=== PATIENT | female | born 1945 | race Caucasian/White ===

== ENCOUNTER 2020-06-19 22:36 | Emergency (ER) | payer MEDICARE, OTHER ==
[~2020-06-19] VITALS: Ht 167.6 cm; Wt 92.1 kg
[2020-06-19] MEDS ORDERED: AMLODIPINE BESY10 MG PO (22:57)
[2020-06-19] MEDS ORDERED: OXYCODONE HCL15 MG PO (22:58)
[2020-06-19] MEDS ORDERED: FAMOTIDINE20 MG PO (22:58)
[2020-06-19] MEDS ORDERED: LISINOPRIL20 MG PO (22:59)
[2020-06-19] MEDS ORDERED: ROSUVASTATIN CAL5 MG PO (22:59)
[2020-06-19] MEDS ORDERED: PANTOPRAZOLE SO40 MG PO (23:00)
== END 2020-06-20 04:54 | disposition home or self-care (01) ==
LOC: ED 22:36
DX: S39.012A Strain of muscle, fascia and tendon of lower back, initial encounter (principal); S76.011A Strain of muscle, fascia and tendon of right hip, initial encounter; W18.30XA Fall on same level, unspecified, initial encounter; I10 Essential (primary) hypertension; F17.200 Nicotine dependence, unspecified, uncomplicated; Z88.0 Allergy status to penicillin; Z88.8 Allergy status to other drugs, medicaments and biological substances; Z79.899 Other long term (current) drug therapy
CPT/HCPCS: 72100; 73502; 96374; 99283-25; J1885

== ENCOUNTER 2020-07-20 09:47 | Emergency (ER) | payer MEDICARE, OTHER ==
[~2020-07-20] VITALS: Ht 167.6 cm; Wt 92.1 kg
[~2020-07-20 09:47] MED LIST: AMLODIPINE BESY10 MG PO; FAMOTIDINE20 MG PO; LISINOPRIL20 MG PO; OXYCODONE HCL15 MG PO; PANTOPRAZOLE SO40 MG PO; ROSUVASTATIN CAL5 MG PO
[2020-07-20] MEDS ORDERED: ZANAFLEX4 MG PO (10:02)
== END 2020-07-20 13:30 | disposition home or self-care (01) ==
LOC: ED 09:47
DX: S96.911A Strain of unspecified muscle and tendon at ankle and foot level, right foot, initial encounter (principal); M79.604 Pain in right leg; I10 Essential (primary) hypertension; F17.200 Nicotine dependence, unspecified, uncomplicated; Z88.0 Allergy status to penicillin; Z88.8 Allergy status to other drugs, medicaments and biological substances; Z79.899 Other long term (current) drug therapy; W10.9XXA Fall (on) (from) unspecified stairs and steps, initial encounter
CPT/HCPCS: 73552; 73560; 73590; 73610; 73630; 96374; 96375; 99283-25; J1885; J2270; J2405

== ENCOUNTER 2021-11-19 11:05 | Emergency (ER) | payer MEDICARE, OTHER ==
[~2021-11-19] VITALS: Ht 167.6 cm; Wt 85.4 kg
[~2021-11-19 11:05] MED LIST changes: +ZANAFLEX4 MG PO
--- OUTSIDE RECORDS SUMMARY | 2021-11-19 11:08 | XMS ---
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 Wilmer VISIT COUNT (12 MO.) Alex Clancy TOTAL 1 NOTE: Visits indicate total known visits. ED/UCC VISIT TRACKING (12 MO.) 11/19/2021 11:05 CHEMA [facility]aji [place] TYPE: Emergency COMPLAINT: - L RIBCAGE INJURY INPATIENT VISIT TRACKING (12 MO.) No inpatient visits to display in this time frame [id number]
[2021-11-19] MEDS ORDERED: LIDOCAINE1 EAC1 TD (11:56)
== END 2021-11-19 12:54 | disposition home or self-care (01) ==
LOC: ED 11:05
DX: S20.212A Contusion of left front wall of thorax, initial encounter (principal); W17.89XA Other fall from one level to another, initial encounter; I10 Essential (primary) hypertension; F17.200 Nicotine dependence, unspecified, uncomplicated; Z88.0 Allergy status to penicillin; Z88.8 Allergy status to other drugs, medicaments and biological substances; Z79.899 Other long term (current) drug therapy
CPT/HCPCS: 71046; 99283-25; A9270

== ENCOUNTER 2021-12-01 12:36 | Emergency (ER) | payer MEDICARE, OTHER ==
[~2021-12-01] VITALS: Ht 167.6 cm; Wt 85.4 kg
[~2021-12-01 12:36] MED LIST changes: +LIDOCAINE1 EAC1 TD
--- OUTSIDE RECORDS SUMMARY | 2021-12-01 12:39 | XMS ---
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 Wilmer VISIT COUNT (12 MO.) 2 [facility] TOTAL 2 NOTE: Visits indicate total known visits. ED/UCC VISIT TRACKING (12 MO.) 12/01/2021 12:37 CHEMA Haji [place] TYPE: Emergency COMPLAINT: - GENERAL PAIN 11/19/2021 11:05 CHEMA Haji [place] TYPE: Emergency COMPLAINT: - L RIBCAGE INJURY INPATIENT VISIT TRACKING (12 MO.) No inpatient visits to display in this time frame [id number]
[2021-12-01] MEDS ORDERED: ASPIRIN81 MG PO (12:55)
[2021-12-01] MEDS ORDERED: OXYCODONE HCL15 MG PO (14:15)
== END 2021-12-01 14:28 | disposition home or self-care (01) ==
LOC: ED 12:36
DX: G89.29 Other chronic pain (principal); Z76.0 Encounter for issue of repeat prescription; I10 Essential (primary) hypertension; F17.200 Nicotine dependence, unspecified, uncomplicated; Z88.0 Allergy status to penicillin; Z88.8 Allergy status to other drugs, medicaments and biological substances
CPT/HCPCS: 99281

== ENCOUNTER 2022-07-15 13:44 | Emergency (ER) | payer MEDICARE, OTHER ==
[~2022-07-15] VITALS: Ht 167.6 cm; Wt 84.8 kg
[~2022-07-15 13:44] MED LIST changes: +ASPIRIN81 MG PO
--- OUTSIDE RECORDS SUMMARY | 2022-07-15 13:46 | XMS ---
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 Wilmer VISIT COUNT (12 MO.) Angel Clancy TOTAL 3 NOTE: Visits indicate total known visits. ED/UCC VISIT TRACKING (12 MO.) 07/15/2022 13:45 CHEMA [facility]aji [place] TYPE: Emergency COMPLAINT: - R KNEE POST OP PAIN 12/01/2021 12:37 CHEMA Haji [place] TYPE: Emergency COMPLAINT: - GENERAL PAIN DIAGNOSES: - Allergy status to other drugs, medicaments and biological substances - Allergy status to penicillin - Encounter for issue of repeat prescription - Essential (primary) hypertension - Nicotine dependence, unspecified, uncomplicated - Other chronic pain 11/19/2021 11:05 CHEMA [facility]aji [place] TYPE: Emergency COMPLAINT: - L RIBCAGE INJURY DIAGNOSES: - Allergy status to other drugs, medicaments and biological substances - Allergy status to penicillin - Contusion of left front wall of thorax, initial encounter - Essential (primary) hypertension - Nicotine dependence, unspecified, uncomplicated - Other chest pain - Other fall from one level to another, initial encounter - Other long term care pharmacist (current) drug therapy INPATIENT VISIT TRACKING (12 MO.) No inpatient visits to display in this time frame [id number]
[2022-07-15] MEDS ORDERED: FAMOTIDINE20 MG PO (14:59)
[2022-07-15] MEDS ORDERED: HYDRALAZINE HCL25 MG PO (14:59)
[2022-07-15 15:09] VITALS: BP 147/71
== END 2022-07-15 15:09 | disposition home or self-care (01) ==
LOC: ED 13:44
DX: M62.81 Muscle weakness (generalized) (principal); I10 Essential (primary) hypertension; F17.200 Nicotine dependence, unspecified, uncomplicated; Z96.651 Presence of right artificial knee joint; Z88.0 Allergy status to penicillin; Z88.8 Allergy status to other drugs, medicaments and biological substances; Z79.899 Other long term (current) drug therapy; Z79.82 Long term (current) use of aspirin
CPT/HCPCS: 99284

== ENCOUNTER 2023-01-19 16:50 | Inpatient (IN) | payer MEDICARE, OTHER ==
[2023-01-19] VITALS (8 sets, daily range): BP systolic 85–131; BP diastolic 57–82
[~2023-01-19] VITALS: Ht 167.6 cm; Wt 82.9 kg
[~2023-01-19 16:50] MED LIST changes: +HYDRALAZINE HCL25 MG PO
--- OUTSIDE RECORDS SUMMARY | 2023-01-19 16:52 | XMS ---
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 Wilmer VISIT COUNT (12 MO.) Sherin Clancy TOTAL 2 NOTE: Visits indicate total known visits. ED/UCC VISIT TRACKING (12 MO.) 01/19/2023 16:51 CHEMA Haji [place] TYPE: Emergency COMPLAINT: - COLD SYMPTOMS 07/15/2022 13:45 CHEMA Haji [place] TYPE: Emergency COMPLAINT: - R KNEE POST OP PAIN DIAGNOSES: - Allergy status to other drugs, medicaments and biological substances - Allergy status to penicillin - Essential (primary) hypertension - USP (current) use of aspirin - Muscle weakness (generalized) - Nicotine dependence, unspecified, uncomplicated - Other senior living (current) drug therapy - Presence of right artificial knee joint - Weakness INPATIENT VISIT TRACKING (12 MO.) No inpatient visits to display in this time frame [id number]
[2023-01-19 17:41] LABS: INFLUENZA B NAA NEGATIVE (NEGATIVE); RESPIRATORY SYNCYTIAL VIR NAA NEGATIVE (NEGATIVE)
[2023-01-19 17:50] LABS: BASOPHILS 2.5 % (0-2); EOSINOPHILS 1.9 % (0-6); HEMATOCRIT 44.8 % (35.0-50.0); HEMOGLOBIN 14.7 g/dL (12.0-18.0); LYMPHOCYTES 13.3 % (24-44); MCH 28.9 (27-36); MCHC 32.9 g/dl (30-36); MCV 87.9 fl (81-99); MONOCYTES 10.6 % (0-12); NEUTROPHILS 71.7 % (39-80); PLATELET COUNT 238 K/uL (140-440); RBC 5.09 M/ul (4.3-5.7); RDW 12.9 (10.5-15.0)
[2023-01-19 18:06] LABS: ALBUMIN 3.6 g/dL (3.4-5.0); ALBUMIN/GLOBULIN RATIO 1.09 (1.1-2.4); ANION GAP 13.1 (7-21); BILIRUBIN, TOTAL 0.5 ng/dL (0.2-1.0); BUN/CREATININE RATIO 18.27 (6.0-28.6); CALCIUM 8.2 mg/dL (8.5-10.1); CREATININE, SERUM 0.93 mg/dL (0.55-1.02); POTASSIUM 4.1 mmol/L (3.5-5.1); PROTEIN, TOTAL 6.9 g/dL (6.4-8.2)
--- NOTE | 2023-01-19 19:50 | NUR ---
PT ARRIVES TO UNIT BY STRETCHER FROM ER. PT IS ALERT AND ORIENTATED. PT IS COUGHING AND HAS DIMISHED LUNG SOUNDS BUT REMAINS ON ROOM AIR. PT IS IN A-FIB AND ARRIVES WITH CARDIZEM DRIP STOPPED DUE TO HYPOTENSION. 500ML BOLUS IS RUNNING. HR REMAINS IN 100-110. PT DENIES ANY NAUSEA AT THIS TIME. WHEN BP IMPROVED PT DID GET UP AND WALKED TO THE BATHROOM TO URINATE. AMBULATED WITH STAND BY ASSIST. PT BACK TO BED, BED LOWERED AND LOCKED. CALL LIGHT WITH IN REACH. PT ORIENTATED TO SURROUNDINGS, RN EDUCATED PT ABOUT CALLING FOR HELP AND TO NOT GET OUT OF BED WITHOUT A STAFF MEMBER. PT DENIES PAIN AT THIS TIME. ALL QUESTIONS AND CONCERNS ADDRESSED.
--- NOTE | 2023-01-19 22:00 | NUR ---
PT IS RESTING IN BED. PT COMPLAINS OF PAIN WHEN COUGHING, PRN MEDICATION GIVEN. VS REVIEWED. CALL LIGHT WITH IN REACH. ALL QUESTIONS AND CONCERNS ADDRESSED. BED LOWERED AND LOCKED.
--- NOTE | 2023-01-19 22:57 | EKG ---
[facility] [address] [facility] [place] [address] Signed Atrial fibrillation with rapid ventricular response with premature ventricular or aberrantly conducted complexes Abnormal ECG No previous ECGs available Confirmed by Jaylan Gomez MD () on 01/19/2023 10:57:28 PM Electronically Signed By: JAYLAN GOMEZ MD 01/19/23 2257 PATIENT NAME: ENRIQUE STONE KEENAN Electrocardiogram DATE OF : 45 PHYSICIAN: JAYLAN GOMEZ MD REPORT #: [id number] REPORT IS CONFIDENTIAL AND NOT TO BE RELEASED WITHOUT AUTHORIZATION
[2023-01-20] VITALS (18 sets, daily range): BP systolic 105–144; BP diastolic 56–97
--- NOTE | 2023-01-20 | NUR ---
PT IS RESTING IN BED. VS ARE REVIEWED. ALL QUESTIONS AND CONCERNS ADDRESSED AT THIS TIME. PT OFFERED FLUIDS. BED IS LOWERED AND LOCKED, PIV FLUSHED. CALL LIGHT IS WITH IN REACH.
--- NOTE | 2023-01-20 01:32 | NUR ---
PT COMPLAINS THAT HER UPPER CHEST PAIN IS NO LONGER TIGHTNESS WHEN TAKING BREATHS BUT IS NOW HEARTBURN SPREADING UP THE CHEST AND INCREASING GETTING WORSE. RN STEPPED OUT TO CALL , EKG AND TROPONIN ORDERED. WHEN RN WENT BACK TO THE ROOM PT STARTED VOMITING, PRN ZOFRAN GIVEN. EKG OBTAINED, NO SIGNIFCANT CHANGES TO EKG, NO SIGNS OF ST ELEVATION. CARDIZEM DRIP INCREASED, HEART RATE INCREASED.
--- NOTE | 2023-01-20 04:00 | NUR ---
PT IS RESTING IN BED. PT DOES NOT COMPLAIN OF ANY NEW OR INCREASED PAIN AT THIS TIME. VITAL SIGNS REVIEWED AND STABLE. CARDIZEM DRIP OFF, PT REMAINS IN A-FIB AND RATE CONTROLLED. ALL QUESTIONS AND CONCERNS ADDRESSED. CALL LIGHT WITH IN REACH. BED IS LOCKED AND IN A LOWERED POSITION.
[2023-01-20 05:44] LABS: BASOPHILS 0.8 % (0-2); EOSINOPHILS 1.8 % (0-6); HEMATOCRIT 40.7 % (35.0-50.0); HEMOGLOBIN 13.8 g/dL (12.0-18.0); LYMPHOCYTES 23.7 % (24-44); MCH 29.4 (27-36); MCHC 33.9 g/dl (30-36); MCV 86.7 fl (81-99); MONOCYTES 10.2 % (0-12); NEUTROPHILS 63.5 % (39-80); PLATELET COUNT 230 K/uL (140-440); RBC 4.69 M/ul (4.3-5.7); RDW 12.7 (10.5-15.0)
[2023-01-20 05:53] LABS: INR 1.16 (0.80-1.30); PROTIME 14.3 Sec (11.2-14.2)
[2023-01-20 06:05] LABS: ALBUMIN 3.2 g/dL (3.4-5.0); ALBUMIN/GLOBULIN RATIO 1.03 (1.1-2.4); ANION GAP 8.9 (7-21); BILIRUBIN, TOTAL 0.4 ng/dL (0.2-1.0); BUN/CREATININE RATIO 17.34 (6.0-28.6); CREATININE, SERUM 0.98 mg/dL (0.55-1.02); MAGNESIUM 1.5 mg/dL (1.8-2.4); PHOSPHORUS, INORGANIC 1.8 mg/dL (2.5-4.9); POTASSIUM 3.9 mmol/L (3.5-5.1); PROTEIN, TOTAL 6.3 g/dL (6.4-8.2)
--- NOTE | 2023-01-20 07:08 | NUR ---
PT RESTING IN BED, NO COMPLAINTS OF PAIN AT THE MOMENT. PT DID FALL ASLEEP AND DESATURATED ONCE INTO 70'S, PT WAS WOKEN AND SATURATIONS IMPROVED. VITAL SIGNS REVIEWED. ALL QUESTIONS AND CONCERNS ADDRESSED. CALL LIGHT WITH IN REACH. BED IN LOW POSITION AND LOCKED.
--- NOTE | 2023-01-20 07:30 | NUR ---
REPORT RECEIVED FROM KIMANI LIZARRAGA. PT ON MONITOR WITH SPO2 97% AND HR 90'S.
[2023-01-20] MEDS ORDERED: NALOXONE HCL4 MG NAS (08:13)
--- NOTE | 2023-01-20 08:20 | NUR ---
ECHO IN TO DO ECHOCARDIOGRAM.
[2023-01-20] MEDS ORDERED: CALCITONIN-SAL3.7 ML NAS (08:22)
[2023-01-20] MEDS ORDERED: ROSUVASTATIN CAL5 MG PO (08:23)
[2023-01-20] MEDS ORDERED: HYDROCHLOROTH12.5 MG PO (08:24)
--- NOTE | 2023-01-20 08:57 | NUR ---
HR UP TO 150'S AFIB WHEN PT GOT UP TO BATHROOM, BACK DOWN TO 120'S QUICKLY THEN 90'S ONCE PT GOT BACK TO LYING DOWN. PT WAS VISIBLY SHORT OF BREATH WITH THIS ACTIVITY, SATS DID NOT DROP. PT STATES SHE IF FEELING COLD, WARM BLANKET PROVIDED AND CALL LIGHT IN REACH.
--- NOTE | 2023-01-20 08:58 | NUR ---
PHARMACY IN TO TALK WITH PT.
[2023-01-20] MEDS ORDERED: CALCIUM 500-VI1 EAC4 PO (09:11)
--- NOTE | 2023-01-20 09:12 | NUR ---
MED REC COMPLETE
--- NOTE | 2023-01-20 10:41 | NUR ---
PATIENT ALERT AND ORIENTED, ON ROOM AIR AND SITTING UP IN BED. STATES SHE LIVES IN A HOUSE. 1 FLIGHT OF STAIRS TO BASEMENT, BUT SHE DOES NOT USE THEM. PATIENT'S DAUGHTER, MONTY, LIVES IN BASEMENT. PATIENT STATES SHE HAS A WALKER AND A WHEELCHAIR. HER WHEELCHAIR SHE ONLY USES SHE IS LEAVING THE HOUSE AND WILL BE UP FOR A WHILE DUE TO CHRONIC PAIN AND DIFFICLTY STANDING FOR PROLONGED PERIODS OF TIME. STATES SHE IS STILL ABLE TO DRIVE, BUT DAUGHTER CAN ASSIST ON OCCASION. DEMOGRAPHICS CONFIRMED WITH PATIENT. STATES SHE IS FINANCIALLY STABLE, HAS GREAT SKILLED NURSING AND HAS NO ISSUES BUYING FOOD, PAYING BILLS ETC. DENIES ANY NEEDS CURRENTLY. IS PLANNING ON CHANGING HER BATH TO A WALK-IN SHOWER AT THE BEGINNING OF NEXT YEAR. ENCOURAGED TO NOTIFY STAFF IF NEEDS ARISE. VERBALIZES UNDERSTANDING.
--- NOTE | 2023-01-20 11:22 | NUR ---
PT STATES SHE IS FEELING LESS NAUSEATED, NO REQUESTS AT THIS TIME. HR 90-100'S AFIB.
--- NOTE | 2023-01-20 12:16 | NUR ---
PT SITTING UP IN BED EATING LUNCH HER DAUGHTER BROUGHT HER.HR 90-100'S AFIB, INCREASED RATE WITH ACTIVITY, UP TO 115'S AT TIMES WITH SITTING UP.
--- NOTE | 2023-01-20 14:07 | NUR ---
CCU ROUNDS. PT EXPRESSED APPROPRIATE RESPONSE FOR SITUATION. PROVIDED GUIDEPOST WITH PRAYER CARD AND CONTACT CARD. PROVIDED PRAYER. 15 MINUTES.
--- NOTE | 2023-01-20 14:36 | NUR ---
UR NOTE MCG ATRIAL FIBRILLATION (ISC) INPATIENT 01/19/23 MET CLINICAL INDICATIONS FOR ADMISSION TO INPATIENT CARE GL DAY 1
--- NOTE | 2023-01-20 14:53 | NUR ---
CALL LIGHT ANSWERED, PATIENT UP TO BSC FOR VOID. HAIR COMBED AND BRAIDED. ASSISTED PATIENT WITH BEDBATH AND GOWN CHANGE. BACK TO BED, CALL LIGHT AND PERSONAL ITEM CLOSE BY.
--- NOTE | 2023-01-20 17:00 | NUR ---
DINNER BROUGHT IN TO PT, NO REQUESTS AT THIS TIME.
--- NOTE | 2023-01-20 18:00 | NUR ---
PT CONTINUES TO REPORT THE SAME PAIN IN CHEST AREA THAT SHE HAS BEEN HAVING SINCE LAST NIGHT, WAXES AND WANES AND MOVES FROM LEFT TO RIGHT SIDE OF CHEST. DR FRANK INFORMED OF THIS CONTINUED PAIN, IN TO EVALUATE PT AND STATES HE DOES NOT BELIEVE IT IS CARDIAC. DAUGHTER OUT TO NURSES STATION TO DISCUSS PTS CHRONIC PAIN MEDICATION, IN TO TALK TO PT ABOUT IT AND SHE IS IN TEARS NOW REPORTING BACK PAIN THAT IS INCREASING, STATES SHE DOES NOT LIKE TO ASK FOR HER PAIN MEDICATION BECAUSE SHE DOES NOT WANT TO BE JUDGED BUT SHE IS HURTING NOW. DR FRANK INFORMED OF THIS WELL AND HE STATES HE WILL BE LOOKING AT MED REC AND PUTTING IN NEW ORDERS. DAUGHTER AND PT INFORMED.
--- NOTE | 2023-01-20 21:45 | NUR ---
PATIENTS ASSSEMEMT COMPLETED. PATIENT DENIES ANY SOB. PATIENT REPORTS COUGH, PRN MEDICATION GIVEN PER ORDER. PM MEDS PER ORDER. PATIENTS IV X2 SL PER ORDER. PATIENT DENIES THE NEED TO USE THE RESTROOM AT THIS TIME. PATIENT IS ON RA. PATIENT DENIES ANY FURTHER NEEDS. CALL LIGHT IN REACH.
--- NOTE | 2023-01-20 22:46 | NUR ---
PATIENT ASSISTED TO THE BSC. PATIENT ABLE TO VOID AND COMPLETED MARIZA CARE. PATIENT IS BACK IN BED RESTING. PATIENT DENIES ANY SOB. PATIENT DENIES ANY FURTHER NEEDS. CALL LIGHT IN REACH.
[2023-01-21] VITALS (10 sets, daily range): BP systolic 111–144; BP diastolic 75–96
--- NOTE | 2023-01-21 00:25 | NUR ---
PATIENT IS RESTING IN BED WITH EYES CLOSED, RR 16. PATIENT BRIEFLY AWOKEN DURING ASSESMENT. PATIENT DENIES ANY PAIN OR SOB. PATIENT DENIES ANY NEEDS. CALL LIGHT AND BELONGINGS ARE WITHIN REACH.
--- NOTE | 2023-01-21 03:20 | NUR ---
PATIENT ASSISTED WITH BLANKETS. PATIENTS VITALS TAKEN AND RECORDED. PATIENT DENIES ANY PAIN OR SOB. PATIENT DENIES ANY NEEDS. CALL LIGHT IN REACH.
--- NOTE | 2023-01-21 04:46 | NUR ---
PATIENT IS RESTING IN BED WITH EYES CLOSED, RR 14. HR 89. PATIENTS CALL LIGHT AND BELONGINGS ARE WITHIN REACH.
--- NOTE | 2023-01-21 06:43 | NUR ---
PATIENTS ASSESMENT COMPLTED. PATIENTS IVS FLUSHED AND SL X2. PATIENTS VITALS TAKEN AND RECORDED. PATIENT DENIES ANY SOB OR PAIN. PATIENT DENIES ANY NEEDS. CALL LIGHT AND BELONGINGS ARE WITHIN REACH.
--- NOTE | 2023-01-21 07:30 | NUR ---
REPORT RECEIVED. RESTING IN BED.
--- NOTE | 2023-01-21 08:00 | NUR ---
PATIENT UP TO BSC FOR VOID. FRESH ICE WATER PROVIDED. CALL LIGHT IN EASY REACH.
--- NOTE | 2023-01-21 08:10 | NUR ---
ASSESSMENT DONE. HAS HARSH LOOSE OCC PRODUCTIVE COUGH. C/O OF INCREASED PAIN IN RIBS WITH COUGH. DENIES CHEST PAIN, NAUSEA. ONLY WANTS PUDDING FOR BREAKFAST. talked with pateint about poc for the day.
--- NOTE | 2023-01-21 08:15 | NUR ---
patient refused breakfast, chocolate pudding provided per request.
--- NOTE | 2023-01-21 09:00 | NUR ---
OXYCODONE 10 MG PO GIVEN FOR PAIN.
[2023-01-21] MEDS ORDERED: XARELTO10 MG PO (10:45)
[2023-01-21] MEDS ORDERED: OSELTAMIVIR PHO30 MG PO (10:46)
[2023-01-21] MEDS ORDERED: DULOXETINE HCL20 MG PO (10:47)
[2023-01-21] MEDS ORDERED: CARDIZEM CD180 MG PO (10:48)
--- NOTE | 2023-01-21 11:52 | NUR ---
D/C VITALS CHARTED IVS X2 REMOVED AND CHARTED. PATIENT WAITING FOR DAUGHTER. DAUGHTER WILL BRING PERSONAL CLOTHING.
--- NOTE | 2023-01-21 14:38 | EKG ---
[facility] [address] [facility] [address] [place] [address] Signed Atrial fibrillation with premature ventricular or aberrantly conducted complexes Prolonged QT Abnormal ECG When compared with ECG of 19-JAN-2023 17:36, No significant change was found Confirmed by WALLY FRANK MD ([id number]) on 01/21/2023 2:38:14 PM Electronically Signed By: WALLY FRANK 01/21/23 1438 PATIENT NAME: DOENRIQUE SPEARS Electrocardiogram DATE OF : 45 PHYSICIAN: WALLY FRANK REPORT #: [id number] REPORT IS CONFIDENTIAL AND NOT TO BE RELEASED WITHOUT AUTHORIZATION
== END 2023-01-21 12:20 | disposition home or self-care (01) | DRG 194 ==
LOC: ED 16:50 → CCU 18:54
PROVIDERS: Emergency Medicine; ADMIT Family Medicine; ATTEND Internal Medicine
DX: J10.1 Influenza due to other identified influenza virus with other respiratory manifestations (principal); I48.20 Chronic atrial fibrillation, unspecified; I10 Essential (primary) hypertension; E66.9 Obesity, unspecified; M79.7 Fibromyalgia; F17.200 Nicotine dependence, unspecified, uncomplicated; E83.39 Other disorders of phosphorus metabolism; E83.42 Hypomagnesemia; Z96.641 Presence of right artificial hip joint; Z96.652 Presence of left artificial knee joint; Z96.612 Presence of left artificial shoulder joint; Z88.0 Allergy status to penicillin; Z88.8 Allergy status to other drugs, medicaments and biological substances; Z11.52 Encounter for screening for COVID-19; Z68.31 Body mass index [BMI] 31.0-31.9, adult
CPT/HCPCS: 36415; 71045; 80053; 83735; 84100; 84484; 85025; 85610; 87502; 93005; 93010; 93306; 96374; 99285-25; A9270; C9803; J1650; J2405; J3475; J3490; J7040; J7060; U0002

== ENCOUNTER 2023-08-19 11:22 | Emergency (ER) | payer MEDICARE, OTHER ==
[~2023-08-19] VITALS: Ht 167.6 cm; Wt 83.0 kg
--- NOTE | ~2023-08-19 | EKG ---
[facility] [address] [facility] [place], [place] [address] Draft EK completed, results pending confirmation PATIENT NAME: CHASEENRIQUE Electrocardiogram DATE OF : 45 PHYSICIAN: PRELIMINARY REPORT #: [id number] REPORT IS CONFIDENTIAL AND NOT TO BE RELEASED WITHOUT AUTHORIZATION
[~2023-08-19 11:22] MED LIST changes: +CALCITONIN-SAL3.7 ML NAS; +CALCIUM 500-VI1 EAC4 PO; +CARDIZEM CD180 MG PO; +DULOXETINE HCL20 MG PO; +HYDROCHLOROTH12.5 MG PO; +LASIX40 MG PO; +MAGNESIUM OXID400 M1 PO; +NALOXONE HCL4 MG NAS; +OSELTAMIVIR PHO30 MG PO; +XARELTO10 MG PO
--- OUTSIDE RECORDS SUMMARY | 2023-08-19 11:23 | XMS ---
PreManage Notification: ENRIQUE STONE Security Quantitative Manager Events No recent Security Events currently on file CRITERIA MET - [facility] - 2 Visits in 30 Days CARE PROVIDERS TIM HONEYCUTT \T\ Neurology: Psychiatry Current [place] PHONE: [phone] Jose David has no Care Guidelines for this patient. E.Jarad VISIT COUNT (12 MO.) [address] [place] [address] [place] TOTAL 5 NOTE: Visits indicate total known visits. ED/UCC VISIT TRACKING (12 MO.) 08/19/2023 11:23 CHEMA Dietz TYPE: Emergency COMPLAINT: - CHEST PAIN 07/30/2023 18:12 CHEMA [facility] [place] TYPE: Emergency COMPLAINT: - SHORTNESS OF BREATH DIAGNOSES: - Allergy status to other drugs, medicaments and biological substances - Allergy status to penicillin - Chronic obstructive pulmonary disease, unspecified - Essential (primary) hypertension - MCC (current) use of anticoagulants - Nicotine dependence, unspecified, uncomplicated - Other fdc (current) drug therapy - Presence of left artificial knee joint - Presence of left artificial shoulder joint - Presence of right artificial hip joint - Presence of right artificial shoulder joint - Shortness of breath - Unspecified atrial fibrillation 07/25/2023 09:32 [facility] TYPE: Emergency DIAGNOSES: 81109. CP/SOB x 2 days, hx AFIB 36765. CP/SOB, hx AFIB 69149. Chest pain, unspecified 71298. Dyspnea, unspecified 56866. 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 - Opioid dependence, uncomplicated - Post-traumatic stress disorder, unspecified - Unspecified fall, initial encounter - Unspecified injury of head, initial encounter - AMB - Fall 01/19/2023 16:51 CHEMA [facility] [place] TYPE: Emergency COMPLAINT: - COLD SYMPTOMS INPATIENT VISIT TRACKING (12 MO.) 04/28/2023 18:12 Jayden [facility] [place] TYPE: Medical Surgical DIAGNOSES: - Cardiomegaly - Chronic pain syndrome - Displaced fracture of olecranon process without intraarticular extension of left ulna, initial encounter for closed fracture - Essential (primary) hypertension - Hyperlipidemia, unspecified - 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 - Lumbago with sciatica, unspecified side - Opioid dependence, uncomplicated - Other chronic pain - Post-traumatic stress disorder, unspecified - Unspecified fall, initial encounter - Unspecified injury of head, initial encounter 01/19/2023 18:54 CHEMA [facility]aji [place] TYPE: Critical Care COMPLAINT: - ATRIAL FIBRILLATION WITH RVR, FLU DIAGNOSES: - Allergy status to other drugs, medicaments and biological substances - Allergy status to other drugs, medicaments and biological substances - Allergy status to penicillin - Allergy status to penicillin - Body mass index [BMI] 31.0-31.9, adult - Body mass index [BMI] 31.0-31.9, adult - Chronic atrial fibrillation, unspecified - Chronic atrial fibrillation, unspecified - Cough, unspecified - Encounter for screening for COVID-19 - Encounter for screening for COVID-19 - Essential (primary) hypertension - Essential (primary) hypertension - Fibromyalgia - Fibromyalgia - Hypomagnesemia - Hypomagnesemia - Influenza due to other identified influenza virus with other respiratory manifestations - Influenza due to other identified influenza virus with other respiratory manifestations - Nicotine dependence, unspecified, uncomplicated - Nicotine dependence, unspecified, uncomplicated - Obesity, unspecified - Obesity, unspecified - Other disorders of phosphorus metabolism - Other disorders of phosphorus metabolism - Presence of left artificial knee joint - Presence of left artificial knee joint - Presence of left artificial shoulder joint - Presence of left artificial shoulder joint - Presence of right artificial hip joint - Presence of right artificial hip joint [id number]
[2023-08-19] MEDS ORDERED: ELIQUIS5 MG PO (11:32)
[2023-08-19] MEDS ORDERED: OXYCODONE HCL10 MG PO (11:40)
[2023-08-19 11:42] LABS: BASOPHILS 0.7 % (0-2); EOSINOPHILS 2.4 % (0-6); HEMATOCRIT 47.9 % (35.0-50.0); HEMOGLOBIN 15.4 g/dL (12.0-18.0); LYMPHOCYTES 16.5 % (24-44); MCH 26.9 (27-36); MCHC 32.1 g/dl (30-36); MCV 83.7 fl (81-99); MONOCYTES 6.9 % (0-12); NEUTROPHILS 73.5 % (39-80); PLATELET COUNT 264 K/uL (140-440); RBC 5.72 M/ul (4.3-5.7); RDW 14.9 (10.5-15.0)
[2023-08-19 11:51] LABS: INR 1.1 (0.80-1.30); PROTIME 13.5 Sec (11.2-14.2)
[2023-08-19] MEDS ORDERED: DILTIAZEM HCl/D5W 125 ML IV SCH (12:00)
[2023-08-19] MEDS ORDERED: dilTIAZem HCL 25 MG/5 ML VIAL IV ONE ×2 (12:00→12:45)
[2023-08-19 12:05] LABS: ALBUMIN 3.3 g/dL (3.4-5.0); ALBUMIN/GLOBULIN RATIO 0.85 (1.1-2.4); ANION GAP 13.9 (7-21); BILIRUBIN, TOTAL 0.3 ng/dL (0.2-1.0); BUN/CREATININE RATIO 16.78 (6.0-28.6); CALCIUM 9.1 mg/dL (8.5-10.1); CREATININE, SERUM 1.37 mg/dL (0.55-1.02); MAGNESIUM 1.5 mg/dL (1.8-2.4); POTASSIUM 3.9 mmol/L (3.5-5.1); PROTEIN, TOTAL 7.2 g/dL (6.4-8.2)
[2023-08-19] MEDS ORDERED: MAGNESIUM SULFATE 2 GM/50 ML BAG IV ONE (12:15)
[2023-08-19] MEDS ORDERED: LORazepam 2 MG/ML VIAL IV ONE (12:15)
[2023-08-19] MEDS ORDERED: SODIUM CHLORIDE 0.9% 500 ML IV PRN (13:00)
[2023-08-19] MEDS ORDERED: dilTIAZem HCL 180 MG CAPCR PO ONE (13:45)
[2023-08-19] MEDS ORDERED: OXYCODONE HCL 5 MG TAB PO ONE (14:00)
[2023-08-19] MEDS ORDERED: TRAZODONE HCL150 MG PO (16:19)
[2023-08-19] MEDS ORDERED: INCRUSE ELLI62.5 MCG INH (16:20)
[2023-08-19] MEDS ORDERED: DILTIAZEM 24HR360 MG PO (16:21)
[2023-08-19 16:56] VITALS: BP 151/70
== END 2023-08-19 17:09 | disposition home or self-care (01) ==
LOC: ED 11:22
PROVIDERS: Emergency Medicine
DX: I48.91 Unspecified atrial fibrillation (principal); I11.0 Hypertensive heart disease with heart failure; I50.9 Heart failure, unspecified; F17.200 Nicotine dependence, unspecified, uncomplicated; Z88.0 Allergy status to penicillin; Z88.8 Allergy status to other drugs, medicaments and biological substances; Z79.01 Long term (current) use of anticoagulants
CPT/HCPCS: 36415; 71045; 71260; 80053; 83735; 83880; 84484; 85025; 85379; 85610; 93005; 93010; 96368; 99285-25; A9270; J2060; J3475; J7040; Q9967

== ENCOUNTER 2024-07-06 10:16 | Emergency (ER) | payer MEDICARE, OTHER ==
[~2024-07-06] VITALS: Ht 167.6 cm; Wt 89.5 kg
[~2024-07-06 10:16] MED LIST changes: +DILTIAZEM 24HR360 MG PO; +ELIQUIS5 MG PO; +INCRUSE ELLI62.5 MCG INH; +OXYCODONE HCL10 MG PO; +TRAZODONE HCL150 MG PO
[2024-07-06 10:30] LABS: BASOPHILS 0.8 % (0.1-1.2); EOSINOPHILS 3.6 % (0.7-5.8); HEMATOCRIT 45.9 % (34.1-44.9); HEMOGLOBIN 14.6 g/dL (11.2-15.7); LYMPHOCYTES 31.9 % (19.3-51.7); MCH 28.9 PG (25.6-32.2); MCHC 31.8 g/dL (32.2-35.5); MCV 90.7 fL (79.4-94.8); MONOCYTES 6.7 % (4.7-12.5); NEUTROPHILS 56.5 % (34.0-71.1); PLATELET COUNT 274 K/uL (182-369); RBC 5.06 M/uL (3.93-5.22)
[2024-07-06] MEDS ORDERED: ASPIRIN 81 MG CHEW PO ONE (10:30)
[2024-07-06 10:52] LABS: ALBUMIN 3.7 g/dL (3.4-5.0); ALBUMIN/GLOBULIN RATIO 1.12 (1.1-2.4); ANION GAP 13.7 (7-21); BILIRUBIN, TOTAL 0.4 mg/dL (0.2-1.0); BUN/CREATININE RATIO 21.27 (6.0-28.6); CALCIUM 8.9 mg/dL (8.5-10.1); CREATININE, SERUM 1.41 mg/dL (0.55-1.02); MAGNESIUM 1.6 mg/dL (1.8-2.4); POTASSIUM 3.7 mmol/L (3.5-5.1)
[2024-07-06] MEDS ORDERED: SODIUM CHLORIDE 0.9% 1,000 ML IV PRN (11:00)
[2024-07-06] MEDS ORDERED: OXYCODONE HCL 5 MG TAB PO ONE (12:45)
[2024-07-06 13:23] VITALS: BP 156/90
--- NOTE | 2024-07-08 07:25 | EKG ---
[facility] [address] [facility] [place], [place] [address] Signed Atrial fibrillation Abnormal ECG When compared with ECG of 19-AUG-2023 11:24, No significant change was found Confirmed by Job Ledezma MD ([id number]) on 07/08/2024 7:25:39 AM Electronically Signed By: JOB LEDEZMA MD 07/08/2425 PATIENT NAME: ENRIQUE STONE KEENAN Electrocardiogram DATE OF : 45 PHYSICIAN: JOB LEDEZMA MD REPORT #: [id number] REPORT IS CONFIDENTIAL AND NOT TO BE RELEASED WITHOUT AUTHORIZATION
== END 2024-07-06 13:23 | disposition home or self-care (01) ==
LOC: ED 10:16
PROVIDERS: Emergency Medicine
DX: I48.91 Unspecified atrial fibrillation (principal); I10 Essential (primary) hypertension; K21.9 Gastro-esophageal reflux disease without esophagitis; F17.200 Nicotine dependence, unspecified, uncomplicated; Z88.0 Allergy status to penicillin; Z88.8 Allergy status to other drugs, medicaments and biological substances; Z79.899 Other long term (current) drug therapy
CPT/HCPCS: 36415; 71045; 80053; 83735; 84484; 85025; 93005; 93010; 99285-25; A9270; J7030